=== PATIENT | female | born 1955 | race Caucasian/White ===

== ENCOUNTER → 2023-07-05 14:40 | Outpatient (REF) | payer MEDICARE, OTHER, SELFPAY | LOC: HWRAD 14:40 | PROVIDERS: ATTENDING PHYSICIAN Nurse Practitioner Adult Health | DX: Z12.31 Encounter for screening mammogram for malignant neoplasm of breast (principal); Z78.0 Asymptomatic menopausal state | CPT/HCPCS: 77063; 77067; 77080 ==

== ENCOUNTER → 2023-07-16 09:40 | Outpatient (REF) | payer MEDICARE, OTHER, SELFPAY | LOC: WDC 09:40 | PROVIDERS: ATTENDING PHYSICIAN Nurse Practitioner Adult Health | DX: R92.8 Other abnormal and inconclusive findings on diagnostic imaging of breast (principal) | CPT/HCPCS: 76642 ==

== ENCOUNTER → 2023-09-27 06:01 | Outpatient (REF) | payer MEDICARE, OTHER, SELFPAY ==
[2023-09-27 09:07] LABS: Blood Urea Nitrogen 19 mg/dl (7-17); Calcium 9.5 mg/dl (8.4-10.2); Carbon Dioxide 28 mmol/L (22-30); Chloride 107 mmol/L (98-107); Glucose 92 mg/dl (70-99); Potassium 4.3 mmol/L (3.5-5.1); Sodium 141 mmol/L (135-145); eGFR > 60.00
[2023-09-27 09:23] LABS: Vitamin D, 25-OH*** 38.5 ng/mL (30-80)
== END ==
LOC: HWLAB 06:01
PROVIDERS: ATTENDING PHYSICIAN Nurse Practitioner Adult Health
DX: I10 Essential (primary) hypertension (principal); M81.0 Age-related osteoporosis without current pathological fracture
CPT/HCPCS: 36415; 80048; 82306

== ENCOUNTER → 2024-01-17 09:14 | Outpatient (REF) | payer MEDICARE, OTHER, SELFPAY | LOC: HWWDC 09:14 | PROVIDERS: ATTENDING PHYSICIAN Nurse Practitioner Adult Health | DX: R92.8 Other abnormal and inconclusive findings on diagnostic imaging of breast (principal) | CPT/HCPCS: 77061; 77065 ==

== ENCOUNTER → 2024-04-09 06:05 | Outpatient (REF) | payer MEDICARE, OTHER, SELFPAY ==
[2024-04-09 10:11] LABS: Blood Urea Nitrogen 22 mg/dl (7-17); Calcium 9.4 mg/dl (8.4-10.2); Carbon Dioxide 29 mmol/L (22-30); Chloride 105 mmol/L (98-107); Glucose 98 mg/dl (70-99); Potassium 4.7 mmol/L (3.5-5.1); Sodium 143 mmol/L (135-145); eGFR > 60.00
== END ==
LOC: HWLAB 06:05
PROVIDERS: ATTENDING PHYSICIAN Nurse Practitioner Adult Health
DX: I10 Essential (primary) hypertension (principal)
CPT/HCPCS: 36415; 80048

== ENCOUNTER → 2024-07-30 10:52 | Outpatient (REF) | payer MEDICARE, OTHER, SELFPAY ==
[2024-07-30 15:27] LABS: % Basophils 0.7 % (0-2); % Eosinophils 1.2 % (0-6); % Immature Granulocytes 0.3 % (0-0.5); % Lymphocytes 19.5 % (20.5-51.1); % Monocytes 6.3 % (1.7-9.3); Absolute Basophils 0.1 10^3/uL (0-0.2); Absolute Eosinophils 0.1 10^3/uL (0-0.7); Absolute Lymphocytes 1.4 10^3/uL (1.2-3.4); Absolute Monocytes 0.4 10^3/uL (0.1-0.6); Hematocrit 41.3 % (37.0-47.0); Hemoglobin 13.1 g/dL (12.0-16.0); Mean Corp Hgb Conc. 31.7 g/dL (33.0-37.0); Mean Corpuscular Hgb 29.6 pg (27.0-31.0); Mean Corpuscular Volume 93.4 fL (81.0-99.0); Mean Platelet Volume 9.6 fL (7.4-10.4); Nucleated Red Blood Cells % 0 %; Platelet Count 279 10^3/uL (130-400); Red Blood Cell Count 4.42 10^6/uL (4.20-5.40); Red Cell Dist. Width 13.3 % (11.5-14.5); White Blood Cell Count 6.9 10^3/uL (4.8-10.8)
[2024-07-30 15:29] LABS: Urine Albumin Negative (Neg - Trace); Urine Bilirubin Negative (Negative); Urine Character Clear (Clear); Urine Color Yellow; Urine Glucose Negative (Negative); Urine Ketone Negative (Negative); Urine Leukocyte Negative (Negative); Urine Nitrite Negative (Negative); Urine Occult Blood Negative (Negative); Urine Urobilinogen Negative (Neg - 1+)
[2024-07-30 15:42] LABS: ALT (SGPT) 12 U/L (0-35); AST (SGOT) 17 U/L (14-36); Alkaline Phosphatase 63 U/L (38-126); Blood Urea Nitrogen 14 mg/dl (7-17); Calcium 9.7 mg/dl (8.4-10.2); Carbon Dioxide 27 mmol/L (22-30); Chloride 106 mmol/L (98-107); Glucose 119 mg/dl (70-99); Potassium 5.2 mmol/L (3.5-5.1); Sodium 139 mmol/L (135-145); Total Bilirubin 0.6 mg/dl (0.2-1.3); Total Protein 6.5 g/dl (6.3-8.2); eGFR > 60.00
[2024-07-30 16:07] LABS: TSH Reflex To Free T4 0.84 uIU/ml (0.47-4.68)
== END ==
LOC: HWLAB 10:52
PROVIDERS: ATTENDING PHYSICIAN Nurse Practitioner Adult Health
DX: R42 Dizziness and giddiness (principal); I10 Essential (primary) hypertension; M54.31 Sciatica, right side
CPT/HCPCS: 36415; 72110; 80053; 81003; 84443; 85025; 93005

== ENCOUNTER → 2024-08-04 09:13 | Outpatient (REF) | payer MEDICARE, OTHER, SELFPAY | LOC: HWWDC 09:13 | PROVIDERS: ATTENDING PHYSICIAN Nurse Practitioner Adult Health | DX: Z12.31 Encounter for screening mammogram for malignant neoplasm of breast (principal) | CPT/HCPCS: 77063; 77067 ==

== ENCOUNTER → 2024-08-31 08:44 | Outpatient (REF) | payer MEDICARE, OTHER, SELFPAY ==
[2024-08-31 14:01] LABS: HDL Cholesterol 61 mg/dl; LDL Cholesterol, Calculated 99 mg/dl; Potassium 4.4 mmol/L (3.5-5.1); Total Cholesterol 183 mg/dl (50-199); Triglyceride 116 mg/dl (10-149); Very Low Density Lipoprotein 23 mg/dl (0-30)
== END ==
LOC: HWLAB 08:44
PROVIDERS: ATTENDING PHYSICIAN Nurse Practitioner Adult Health
DX: E87.5 Hyperkalemia (principal); I70.90 Unspecified atherosclerosis
CPT/HCPCS: 36415; 80061; 84132

== ENCOUNTER → 2024-09-24 07:53 | Outpatient (REF) | payer MEDICARE, OTHER, SELFPAY | LOC: HWRCS 07:53 | PROVIDERS: ATTENDING PHYSICIAN Internal Medicine Cardiovascular Disease | DX: R94.31 Abnormal electrocardiogram [ECG] [EKG] (principal) | CPT/HCPCS: 93306 ==

== ENCOUNTER 2024-11-13 22:28 | Emergency (ER) | payer MEDICARE, OTHER, SELFPAY ==
[2024-11-13 22:32] VITALS: BP 173/77
[2024-11-13 22:35] VITALS: BP 173/77
[2024-11-13 22:43] VITALS: BMI 29.0
[2024-11-13 23:05] LABS: % Basophils 0.4 % (0-2); % Eosinophils 1.2 % (0-6); % Immature Granulocytes 0.3 % (0-0.5); % Lymphocytes 12.6 % (20.5-51.1); % Monocytes 4.8 % (1.7-9.3); % Neutrophils 80.7 % (42.2-75.2); Absolute Eosinophils 0.1 10^3/uL (0-0.7); Absolute Lymphocytes 1.3 10^3/uL (1.2-3.4); Absolute Monocytes 0.5 10^3/uL (0.1-0.6); Absolute Neutrophils 8.3 10^3/uL (1.4-6.5); Hematocrit 36.3 % (37.0-47.0); Hemoglobin 12.3 g/dL (12.0-16.0); Mean Corp Hgb Conc. 33.9 g/dL (33.0-37.0); Mean Corpuscular Hgb 30.6 pg (27.0-31.0); Mean Corpuscular Volume 90.3 fL (81.0-99.0); Mean Platelet Volume 9.6 fL (7.4-10.4); Nucleated Red Blood Cells % 0 %; Platelet Count 241 10^3/uL (130-400); Red Blood Cell Count 4.02 10^6/uL (4.20-5.40); Red Cell Dist. Width 13.2 % (11.5-14.5); White Blood Cell Count 10.3 10^3/uL (4.8-10.8)
[2024-11-13 23:22] LABS: ALT (SGPT) 19 U/L (0-35); AST (SGOT) 28 U/L (14-36); Albumin 4.3 g/dl (3.5-5.0); Alkaline Phosphatase 43 U/L (38-126); Blood Urea Nitrogen 22 mg/dl (7-17); Calcium 9.3 mg/dl (8.4-10.2); Carbon Dioxide 23 mmol/L (22-30); Chloride 111 mmol/L (98-107); Estimated Creatinine Clearance 74 ml/min; Glucose 122 mg/dl (70-99); Potassium 4.6 mmol/L (3.5-5.1); Sodium 139 mmol/L (135-145); Total Bilirubin 0.5 mg/dl (0.2-1.3); Total Protein 6.7 g/dl (6.3-8.2); eGFR > 60.00
[2024-11-14] VITALS (9 sets, daily range): BP systolic 114–162; BP diastolic 65–109; PULSE 71–84
--- NOTE | 2024-11-14 02:43 | ED.GENMED ---
History of Present Illness
General
Chief Complaint: Dizziness
Source: patient and ambulance crew
Exam Limitations: none
Time Seen by Provider: 11/14/24 02:28
Nursing documentation reviewed up to this point in time: agreed with
History of Present Illness
History of Present Illness:
This is a 69-year-old woman with history of hypertension maintained on lisinopril, amlodipine. She states tonight while sitting on the couch watching TV she developed somewhat sudden onset of dizziness with a sense of her head spinning accompanied
with nausea, diaphoresis, significant ringing in her ears right greater than left. Symptoms were much worse with attempted movement with onset of nausea and several episodes of vomiting. When she attempted to get up and stand she noted that both
of her legs felt weak but she did not fall, did not lose consciousness, no numbness. Symptoms improved with sitting/lying still.
She arrives via EMS and received 4 mg of Zofran prehospital.
Noted to be moderately hypertensive prehospital with systolic blood pressure 175/96 then 160/90.
Patient reports no history of similar episodes in the past. She did note mild ringing intermittently in her right ear earlier in the week but no pain, no sinus congestion, no sore throat, no fevers or chills.
Currently symptoms have improved, no further nausea but continues with brief mild dizziness more so with change in position and continues with moderate generalized headache. No palpitations no chest pain, no shortness of breath, no abdominal pain,
no neck nor back pain.
Past History
Past History
ED Past Medical History: HTN
ED Past Surgical History: None
Social History
Tobacco: Non-smoker
Alcohol: None
Living: with family
Employment: Retired
Family History
Family History: Other (Noncontributory)
Phy Exam
Physical Exam
Physical Exam:
GENERAL: 69-year-old woman appears her stated age, awake and alert, appears in no acute distress. Easily communicative. Several family members accompanying.
EYE: pupils equal and reactive. Extraocular muscles intact. Negative test of skew. Minimally positive head impulse to the left. Anicteric
NECK: Supple, nontender, no meningismus, no significant adenopathy.
ENT: posterior pharynx is clear, oral mucosa is moist. TM clear b/l, nares patent.
CARDIAC: Regular rate and rhythm. no murmur.
LUNGS: Clear breath sounds bilaterally, no acute respiratory distress, no wheezes/rales/rhonchi
ABDOMEN: Soft, nondistended, without focal tenderness, no r/g, no cvat. normoactive BS.
NEUROLOGICAL: Alert and oriented x3, no focal neuro deficits. [place]-Hallpike mildly positive.
SKIN: Warm and dry, normal color, skin intact. No rash.
MUSCULOSKELETAL: No C/C/E. peripheral pulses are full and equal b/l. No palpable tenderness.
PSYCH: Normal and appropriate interaction.
Course
Orders/Labs/Results
Orders:
Orders
11/13/24 22:34
EKG [Electrocardiogram (*1)] Urgent
Reason for Study: Syncope
11/13/24 22:35
EKG- Treatment ONCE
11/13/24 22:47
CBC/With Diff [Complete Blood Count/With Diff] Urgent
Comprehensive Metabolic Panel Urgent
11/14/24 02:40
Acetaminophen 1000MG/100Ml [Ofirmev] 1,000 mg in 100 ml IV ONCE
Acetaminophen IV Indication:: ED Narcotic Naive Pt-ONCE
Meclizine [Antivert] 25 mg PO NOW STA
11/14/24 02:41
CT Head W/o Iv Contrast Urgent
Comment:
Reason For Exam: acute headache, dizziness
11/14/24 04:42
Diphenhydramine [Benadryl] 12.5 mg IV NOW STA
Ketorolac [Toradol] 15 mg IV NOW STA
Prochlorperazine [Compazine] 5 mg IV NOW STA
11/14/24 06:09
Orthostatic VS- Treatment ONCE
11/14/24 07:14
Meclizine [Antivert] 25 mg PO NOW STA
Abnormal Lab Results
11/13/24
22:47
RBC 4.02 L 10^6/uL
(4.20-5.40)
Hct 36.3 L %
(37.0-47.0)
Absolute Neuts (auto) 8.3 H 10^3/uL
(1.4-6.5)
Neutrophils % 80.7 H %
(42.2-75.2)
Lymphocytes % 12.6 L %
(20.5-51.1)
Chloride 111 H mmol/L
(98-107)
BUN 22 H mg/dl
(7-17)
Glucose 122 H mg/dl
(70-99)
11/13/24 22:47
11/13/24 22:47
Vital Signs
Initial and Last Documented VS:
Initial Vital Signs
BP Pulse Ox
173/77 98
11/13/24 22:32 11/13/24 22:32
Last Documented Vital Signs
Temp Pulse Resp BP Pulse Ox
98.5 F 64 16 114/65 95
11/13/24 22:35 11/14/24 06:00 11/14/24 06:00 11/14/24 06:00 11/14/24 06:00
MDM/Problems Addressed
Differential Diagnosis Includes:
Concern for acute vertigo other central versus peripheral, concern for CVA, concern for orthostasis.
Head impulse minimally positive with rotation of head to the left.
No focal neurodeficits.
Labs are unremarkable as is EKG.
Will check CT of the head. Will trial an IV dose of Tylenol and an oral dose of meclizine.
Chronic conditions affecting care: HTN
*Radiology
Radiology exam reviewed: radiology read reviewed
*Pulse Oximetry
SaO2: 98
Oxygen Mode of Delivery: Room air
Patient hypoxic: no
*EKG
Interpreted by ED Provider?: Yes
Interpretation: normal
Comparison EKG: no changes
Rate: normal
Rhythm: sinus
[place]: normal axis
Interval: normal interval
QRS Pattern: normal QRS
Ischemia: no ischemia
*[employer] Worker Interpretation
Rate: normal
Interpretation: normal
Rhythm: sinus
*Critical Care Note
Total Time (30-74mins, 75-104mins- exclusive of procedures): Not Applicable
Update Note
Update Note:
04:44
Patient feeling improved after Tylenol and meclizine. Dizziness is markedly improved but continues with moderate generalized headache. No further ringing in her ears.
Labs are unremarkable.
CT of the head shows extensive white matter disease. No hemorrhage nor hydrocephalus nor herniation.
Will trial an IV dose of Compazine, Benadryl, Toradol for headache and continue to observe.
07:00
Headache has resolved. Resting comfortably.
She does continue with very mild dizziness only noted with change in position, sitting up. Intermittent ringing in her right ear as well.
Orthostatic vital signs are negative.
Will give an additional dose of meclizine for what I suspect is peripheral vertigo, M�ni�re's disease.
Encourage prompt follow-up with PCP for recheck. Will refer to ENT as well.
ED Attending Note
-
Portions of this chart may have been created with voice recognition software.� Occasional wrong word or��sound alike� substitutions may have occurred due to the inherent limitations of voice recognition software.
Discharge Plan
Departure
Patient Disposition: Home (Routine Discharge)
Date of Disposition: 11/14/24
Time of Disposition: 07:29
Patient with high blood pressure during this ER visit?: No
Condition: Good
Discharge Problem:
Acute vertigo, Meniere disease of right ear
Instructions: Vertigo (a Type of Dizziness) (DC)
Prescriptions:
New
meclizine 25 mg tablet
25 mg PO QID PRN (Reason: dizziness, nausea) Qty: 20 0RF
Referrals:
Eri Landis CRNP [Family Provider, General] - Call in 1-3 days for appt
Andrzej Padilla MD [Active, Otology]
Interventions
Interventions:
*Risk Screen - Suicide Last Done: 11/13/24 22:35
*General Assessment Last Done: 11/13/24 22:35
*Neglect/Abuse Screening Last Done: 11/13/24 22:35
*ED- Fall Risk Assessment Last Done: 11/13/24 22:35
*ED COVID-19 Vaccine History Last Done: 11/13/24 22:35
ED- Neurological Assessment Last Done: 11/13/24 22:51
ED Swallowing Screen Last Done: 11/13/24 22:51
Discharge Date and Time
Print Language: CZECH
[2024-11-14] MEDS: OFIRMEV 100 IV (03:00)
[2024-11-14] MEDS: ANTIVERT 25 MG PO ×2 (03:00→08:08)
[2024-11-14] MEDS: TORADOL 15 MG IV (04:48)
[2024-11-14] MEDS: BENADRYL 12.5 MG IV (04:49)
[2024-11-14] MEDS: COMPAZINE 5 MG IV (04:49)
== END 2024-11-14 07:30 | disposition home or self-care (01) ==
LOC: EMR 22:28
PROVIDERS: EMERGENCY PHYSICIAN Emergency Medicine; FAMILY PHYSICIAN Nurse Practitioner Adult Health
DX: R42 Dizziness and giddiness (principal); I10 Essential (primary) hypertension
CPT/HCPCS: 99284; 96374; 96375; 70450; 80053; 85025; 93005

== ENCOUNTER → 2025-03-18 17:21 | Outpatient (REF) | payer MEDICARE, OTHER, SELFPAY | LOC: PAVMRI 17:21 | PROVIDERS: ATTENDING PHYSICIAN Nurse Practitioner Adult Health | DX: M25.511 Pain in right shoulder (principal) | CPT/HCPCS: 73221 ==